=== PATIENT | female | born 1965 | race African-American/Black ===

== ENCOUNTER 2025-01-09 14:58 | Emergency (ER) | payer OTHER ==
[2025-01-09 15:09] VITALS: BP 115/67; PULSE 62; RESP 18; TEMP 97.8; BMI 20.7
[2025-01-09 15:54] LABS: MCHC 30.7 g/dl (32.2-35.5); MEAN CELL VOLUME 90.0 fl (79.4-94.8); MEAN PLT VOLUME 9.2 fl (9.4-12.3); RDW 12.7 % (12.3-16.6)
[2025-01-09 16:12] LABS: GLUCOSE,RANDOM 97.0 mg/dL (74-106); TOT PROT 7.0 g/dl (6.4-8.2)
[2025-01-09 16:13] LABS: CO2 27.0 mmol/L (21-32)
[2025-01-09 16:15] LABS: ALK PHOS 71.0 U/L (40-150)
[2025-01-09 16:18] LABS: CREATININE 0.83 mg/dL (0.55-1.3); SGOT/AST 26.0 U/L (5-34); SGPT/ALT 18.0 U/L (0-55)
[2025-01-09] MEDS ORDERED: IBUPROFEN 400 MG TABLET (FP) PO ONE (16:28)
[2025-01-09] MEDS: IBUPROFEN 400 MG TABLET (FP) PO ONE (16:30)
== END 2025-01-09 17:18 | disposition home or self-care (01) ==
LOC: JERFT 14:58
DX: M25.542 Pain in joints of left hand (principal); M25.442 Effusion, left hand; L53.9 Erythematous condition, unspecified
CPT/HCPCS: 36415; 73130-TC-RT-FY; 80053; 84550; 85025; 99284-25